=== PATIENT | male | born 1980 ===

== ENCOUNTER 2017-09-07 14:59 | Outpatient (RCR) | payer OTHER ==
[2017-08-10 15:09] VITALS: BP 125/86
--- NOTE | 2017-08-15 04:04 | [facility] ONCOLOGY NOTE ---
EVENT DATE: August 10, 2017 REFERRING PHYSICIAN Patient is self referred. REASON FOR THE CONSULTATION Establishment of care for hereditary hemochromatosis. HISTORY OF PRESENT ILLNESS The patient is a 37-year-old male who was diagnosed in 2006 with hemochromatosis after presenting with joint pains, and during his evaluation, patient was found to have to high iron studies, and genetic testing came back positive, but unfortunately I do not have the records for that information currently. Patient was maintained after that on phlebotomy sessions. He moved from [place] to [place], [place], and he did not have any phlebotomy for the last 6 months. Patient currently is doing very well, and apart from having occasional constipation, patient is doing really very well. PAST MEDICAL HISTORY 1. Hereditary hemochromatosis. 2. GERD. PAST SURGICAL HISTORY Insignificant. SOCIAL HISTORY Patient is with no children. He works as a mental health counselor. He drinks about 3-4 drinks per week. He denies any tobacco or illicit drug abuse. FAMILY HISTORY Father had prostate cancer, and sister had hemochromatosis. MEDICATIONS Patient was maintained on Protonix, which he discontinued recently because of knowing of the long-term side effects. ALLERGIES NO KNOWN DRUG ALLERGIES. REVIEW OF SYSTEMS CONSTITUTIONAL: No appetite or weight change. No fever, chills or sweating. No recent infection. HEENT: Ears: No tinnitus or hearing problem. Nose: No nasal discharge or epistaxis. Throat: No sore throat or mouth ulcers. Eyes: No diplopia or visual changes. RESPIRATORY: No shortness of breath. No cough, expectoration or hemoptysis. CARDIOVASCULAR: No chest pain, orthopnea, or paroxysmal nocturnal dyspnea (PND) . No edema. No palpitations. GASTROINTESTINAL: Patient has occasional constipation. GENITOURINARY: No hematuria or dysuria. MUSCULOSKELETAL: No pain in the muscles, joints or bones. NEUROLOGICAL: No tingling or numbness in the hands or feet. No headaches or convulsions. HEMATOLOGIC/LYMPHATIC: No bleeding or easy bruising. No weakness or fatigued. No enlarged lymph nodes. SKIN: No skin rash or lumps. PSYCHIATRIC: No anxiety or depression. PHYSICAL EXAMINATION GENERAL: Looks stable. Well-developed, well-nourished, and in no acute distress. VITAL SIGNS: Blood pressure 125/86, pulse 89 per minute, respirations 16 per minute, temperature 97, pulse oximetry 94% on room air. HEENT: Head: Atraumatic. No sinus tenderness to palpation. Eyes: No icterus or conjunctivitis. Mouth and throat: No oral thrush or mucositis. NECK: Supple. No cervical or supraclavicular lymphadenopathy. LUNGS: Clear to auscultation and percussion bilaterally. HEART: Regular rate and rhythm. No gallops, murmurs, clicks or rubs. ABDOMEN: Soft and lax. No tenderness. No hepatosplenomegaly. No masses. EXTREMITIES: No cyanosis, clubbing or edema. LYMPHATICS: No peripheral lymphadenopathy. NEUROLOGICAL: Conscious, alert and oriented times three. No focal motor or sensory deficits. PSYCHIATRIC: Mood and affect appear normal. SKIN: No skin rash, bruise or purpuric eruption. ASSESSMENT 1. Hereditary hemochromatosis established since 2006 after genetic testing which came back positive, and the patient was maintained on phlebotomy sessions since then. At that time, the patient presented with joint pains, and during his evaluation, he was found to have iron overload. Patient moved from [place] to [place], [place], and he would like to establish care for his hemochromatosis, as he has not had any phlebotomy sessions in the last six months, he usually has a phlebotomy session every 3 months. I am planning to get his records, so we will not repeat his testing again for hemochromatosis. I am planning also to check his iron studies including ferritin. I would proceed with phlebotomy if his serum ferritin is more than 50 ng/mL, and/or his iron studies more than 60%. I will see him again in 3 months with CBC, Chem panel and iron studies with ferritin. Patient is agreeable with the plan of management. 2. Gastroesophageal reflux disease. The patient is not receiving any medications currently, and he does not have any symptoms at the moment. PLAN 1. Check CBC. 2. Check CMP. 3. Check iron studies with ferritin. 4. Consider phlebotomy if serum ferritin is more than 50 ng, and/or iron saturation more than 60%. 5. Patient to return in 3 months with CBC, Chem panel, iron studies with ferritin. 6. Patient to contact us for any new concerns or complaints. LOYD
[~2017-09-07] VITALS: Ht 171.4 cm; Wt 153.0 kg
[~2017-09-07 14:59] MED LIST: DEXTROSE 5%(*) 100 ML BAG 100 ML IVPB PRN; LIDOCAINE/SOD BICARB 8.4% SYR ID PRN; NS(*) 0.9% 100 ML BAG 100 ML IVPB PRN; PANT40TA65 PO
[2017-09-07] MEDS ORDERED: NS(*) 0.9% 500 ML BAG 500 ML IV ONE (15:15)
[2017-09-07 15:17] VITALS: BP 129/86
[2017-09-07 15:52] LABS: PLATELET COUNT, AUTOMATED 184 K/uL (150-450)
== END 2017-11-07 ==
LOC: SPU 14:59
PROVIDERS: ATTEND Internal Medicine Hematology
DX: E83.110 Hereditary hemochromatosis (principal); K21.9 Gastro-esophageal reflux disease without esophagitis
CPT/HCPCS: 36415; 82728; 83540; 83550; 85025; 85027; 99202; J7040; 82040; 82247; 82310; 82374; 82435; 82565; 82947; 84075; 84132; 84155; 84295; 84450; 84460; 84520